=== PATIENT | male | born 1980 | race Caucasian/White ===

== ENCOUNTER 2022-01-27 10:44 | Outpatient (CLI) | payer BC, SELFPAY ==
[2022-01-27 14:08] LABS: Basophils Percent Auto 0.2 % (0.0-3.0); Hematocrit 46.1 % (37.0-53.0); Hemoglobin* 16.6 gm/dL (13.5-17.5); Lymphocytes Percent Auto 16.4 % (20-44); Mean Corpuscular HGB Conc 36 gm/dL (32-36); Mean Corpuscular Hemoglobin 33 pg (26-34); Mean Corpuscular Volume 93 fL (80-100); Monocytes Percent Auto 12.3 % (0.0-11.0); Neutrophils Percent Auto 71.1 % (42.0-72.0); Platelet Count* 211 K/uL (140-440); RDW Coefficient of Variation % 11.7 % (11.5-15.5); Red Blood Count 4.98 m/uL (4.30-5.90); White Blood Count* 4.22 K/uL (4.50-11.00)
[2022-01-27 14:15] LABS: Slide Review Reflex No
[2022-01-27 15:01] LABS: Chloride* 106 mmol/L (96-114)
[2022-01-27 15:02] LABS: Potassium* 4.1 mmol/L (3.6-5.1); Sodium* 140 mmol/L (135-149)
[2022-01-27 15:05] LABS: Blood Urea Nitrogen* 13 mg/dL (5-24); Calcium* 9.2 mg/dL (8.4-10.6); Carbon Dioxide* 25 mmol/L (20-32); Cholesterol* 158 mg/dL (90-199); Creatinine* 0.9 mg/dL (0.5-1.5); Estimated Glomerular Filt Rate 109 ml/min; Glucose* 94 mg/dL (60-115); Triglycerides* 112 mg/dL (40-149)
[2022-01-27 15:06] LABS: HDL Cholesterol* 49 mg/dL (>=40); LDL Cholesterol Calculated 87 mg/dL (<100)
== END 2022-01-27 10:45 | disposition home or self-care (01) ==
PROVIDERS: PCP Family Medicine; Visit Provider Family Medicine
DX: Z00.00 Encounter for general adult medical examination without abnormal findings (principal); R53.83 Other fatigue; Z13.6 Encounter for screening for cardiovascular disorders
CPT/HCPCS: 80048; 80061; 84443; 85025

== ENCOUNTER 2022-06-24 12:15 | Outpatient (CLI) | payer BC, SELFPAY | END 2022-06-24 12:16 | disposition home or self-care (01) | PROVIDERS: PCP Family Medicine; Visit Provider Family Medicine | DX: M25.50 Pain in unspecified joint (principal) | CPT/HCPCS: 86039; 86140; 86431; 86812 ==